=== PATIENT | male | born 1985 | race Hispanic/Latino ===

== ENCOUNTER 2017-03-01 10:07 | Emergency (ER) | payer BC, OTHER ==
[2017-03-01 10:29] VITALS: BMI 25.6
[2017-03-01 10:43] VITALS: RESP 20
[2017-03-01] MEDS ORDERED: Sodium Chloride 0.9% 1,000 ML IV STA (11:20)
[2017-03-01] MEDS ORDERED: Iohexol 240 (50 ml) PO STA (11:34)
[2017-03-01] MEDS ORDERED: Iohexol 240 (50 ml) ONE (11:45)
[2017-03-01 11:54] LABS: BASO % 0.3 % (0.0-2.0); EOS # 0.2 K/uL (0.0-0.7); EOS % 3.5 % (0.0-4.0); HEMATOCRIT 42.2 % (35.0-51.0); LYMPH # 1.4 K/uL (1.0-4.3); LYMPH % 26.1 % (20.0-40.0); MEAN CORPUSCULAR HEMOGLOBIN 28.8 pg (27.0-31.0); MEAN CORPUSCULAR HGB CONC 33.4 g/dL (33.0-37.0); MEAN PLATELET VOLUME 8.8 fl (7.2-11.7); MONO # 0.6 K/uL (0.0-0.8); MONO % 10.6 % (0.0-10.0); NEUT # 3.1 K/uL (1.8-7.0); NEUT % 59.5 % (50.0-75.0); NRBC % 0.1 % (0.0-0.0); RED CELL DISTRIBUTION WIDTH 13.2 % (11.5-14.5); WHITE BLOOD COUNT 5.2 K/uL (4.8-10.8)
--- NOTE | 2017-03-01 11:57 | ED PDOC ---
HPI: Abdomen Chief Complaint (Provider): Epigastric abdominal pain History Per: Patient Onset/Duration Of Symptoms: Hrs Outside of [place] travel?: No Associated Symptoms: denies: Fever, Chills, Nausea, Vomiting, Loss Of Appetite, Constipation, Urinary Symptoms Exacerbating Factors: None <Carole Davis - Last Filed: 03/01/17 14:53> <Boubacar Perez III - Last Filed: 03/01/17 15:01> Time Seen by Provider: 03/01/17 10:49 Chief Complaint (Nursing): Abdominal Pain Additional Complaint(s): Pt states that 2 weeks ago he woke up in the middle of the night with epigastric pain and felt a tender abnormality. Pt states during the day it went away but last night it happened again. Pt denies N/B/D. Pt states he did not take anything for pain. (Carole Daivs) Past Medical History Reviewed: Historical Data, Nursing Documentation, Vital Signs - Medical History PMH: No Chronic Diseases - Surgical History Surgical History: No Surg Hx - Family History Family History: States: Unknown Family Hx - Living Arrangements Living Arrangements: With Family - Social History Current smoker - smoking cessation education provided: No Alcohol: Occasional (Pt reports drinking last night) Drugs: Denies <Carole Davis - Last Filed: 03/01/17 14:53> <Boubacar Perez III - Last Filed: 03/01/17 15:01> Vital Signs: Last Vital Signs Temp 98.8 F 03/01/17 10:41 Pulse 85 03/01/17 10:41 Resp 20 03/01/17 10:41 BP 145/77 03/01/17 10:41 Pulse Ox 100 03/01/17 14:53 - Home Medications Home Medications: Ambulatory Orders Medication Instructions Recorded traMADol [Ultram] 50 mg PO TID PRN #12 tab 03/01/17 - Allergies Allergies/Adverse Reactions: Allergies Allergy/AdvReac Type Severity Reaction Status Date / Time No Known Allergies Allergy Verified 03/01/17 10:41 Review of Systems ROS Statement: Except As Marked, All Systems Reviewed And Found Negative Gastrointestinal: Positive for: Abdominal Pain, Other. Negative for: Nausea, Vomiting <Carole Davis - Last Filed: 03/01/17 14:53> Physical Exam - Reviewed Nursing Documentation Reviewed: Yes Vital Signs Reviewed: Yes - Physical Exam Appears: Positive for: Well, Non-toxic, No Acute Distress Head Exam: Positive for: ATRAUMATIC, NORMAL INSPECTION, NORMOCEPHALIC Skin: Positive for: Normal Color, Warm, DRY Eye Exam: Positive for: Normal appearance ENT: Positive for: Normal ENT Inspection Neck: Positive for: Normal, Painless ROM Cardiovascular/Chest: Positive for: Regular Rate, Rhythm Respiratory: Positive for: Normal Breath Sounds. Negative for: Accessory Muscle Use, Respiratory Distress Gastrointestinal/Abdominal: Positive for: Bowel Sounds, Soft, Tenderness ( Palpable tender mass, epigastric area ). Negative for: Normal Exam Back: Positive for: Normal Inspection Extremity: Positive for: Normal ROM Neurologic/Psych: Positive for: Alert, Oriented <Carole Davis - Last Filed: 03/01/17 14:53> - Laboratory Results Result Diagrams: 03/01/17 11:49 03/01/17 11:49 - ECG O2 Sat by Pulse Oximetry: 100 Pulse Ox Interpretation: Normal <Carole Davis - Last Filed: 03/01/17 14:53> - Laboratory Results Result Diagrams: 03/01/17 11:49 03/01/17 11:49 <Boubacar Perez III - Last Filed: 03/01/17 15:01> Medical Decision Making <Carole Davis - Last Filed: 03/01/17 14:53> <Boubacar Perez III - Last Filed: 03/01/17 15:01> Medical Decision Making: Endorsed to Dr. Perez pending labs and CT scan. (Carole Davis) labs reviewed, clinically unremarkable CT report: Accession No. : [id number] Patient Name / ID : REBECCA GONZALES / [id number] Exam Date : 03/01/2017 14:18:20 ( Addendum_Approved ) Study Comment : Sex / Age : M / [id number] Creator : Betsey Nichole MD Dictator : Betsey Nichole MD Calender Wind Up Tender : Examining Chair Assembler : Betsey Nichole MD Approver2 : Report Date : 03/01/2017 14:47:51 My Comment : ADDENDUM: This addendum is in regards to additional findings in the abdominal wall. There is a supraumbilical midline ventral hernia containing fat and minimal soft tissue. No evidence of herniation of bowel or level. No CT evidence for incarceration. [ Addendum Report Added by Betsey Nichole MD at 03/01/2017 14:51:49 ] PROCEDURE: CT Abdomen and Pelvis with contrast HISTORY: Epigastric pain, tender palpable mass COMPARISON: None. TECHNIQUE: Contrast dose: 95 mL Omnipaque 300 Radiation dose: Total exam DLP = 990.1 a mGy-cm. This CT exam was performed using one or more of the following dose reduction techniques: Automated exposure control, adjustment of the mA and/or kV according to patient size, and/or use of iterative reconstruction technique. FINDINGS: LOWER THORAX: There is bibasilar subsegmental atelectasis. LIVER: The liver is normal in size and there is homogeneous enhancement. There is mild diffuse low-attenuation in the liver. No gross lesion or ductal dilatation. GALLBLADDER AND BILE DUCTS: There are no calcified gallstones. PANCREAS: The pancreas is normal in appearance. No gross lesion or ductal dilatation. SPLEEN: There is borderline splenomegaly without focal lesion. ADRENALS: Both adrenal glands are normal in size without discrete nodule. KIDNEYS AND URETERS: Both kidneys are normal in size and there is homogeneous enhancement without focal mass or hydronephrosis. VASCULATURE: No evidence of aortic aneurysm. The abdominal vasculature is normal in appearance. BOWEL: The small bowel loops are normal in caliber. The colon is unremarkable. APPENDIX: Normal appendix. PERITONEUM: No free fluid. No free air. LYMPH NODES: No enlarged lymph nodes. BLADDER: Unremarkable. REPRODUCTIVE: Normal in appearance. The prostate gland is normal in size. BONES: No acute fracture. Within normal limits for the patient's age with OTHER FINDINGS: None. IMPRESSION: 1. No evidence of mass in the stomach or pancreas. No acute abdominal abnormality. 2. Hepatic steatosis and mild splenomegaly. Discussed findings w patient. Will need elective semiurgent repair. Pain control. Avoid exertion, fitness training until sees surgeon. Returning to [place] sunday. Return to ER for any worse or new symptoms. Pt comfortable with nonacute abdomen on discharge. I took part in all care, examined patient and agree w PA findings. (Boubacar Perez III) Disposition - Patient ED Disposition Is Patient to be Admitted: Transfer of Care - Disposition Disposition: Transfer of Care Disposition Time: 12:53 <Carole Davis - Last Filed: 03/01/17 14:53> - Patient ED Disposition Is Patient to be Admitted: No Counseled Patient/Family Regarding: Studies Performed, Diagnosis, Need For Followup, Rx Given - Disposition Disposition: Routine/Home Disposition Time: 14:58 <Boubacar Perez III - Last Filed: 03/01/17 15:01> - Clinical Impression Clinical Impression: Abdominal pain, Ventral hernia - Disposition Referrals: Jh Griffin MD [Staff Provider] - Condition: STABLE Additional Instructions: See surgeon within next week for further testing and possible surgery to correct ventral hernia. Return to ER for any new or worse symptoms, pain, vomiting or fever. Avoid heavy exertion or straining to prevent further worsening of hernia defect. Prescriptions: traMADol [Ultram] 50 mg PO TID PRN #12 tab PRN Reason: Pain, Moderate (4-7) Instructions: Ventral Hernia (ED)
[2017-03-01 12:08] LABS: CHLORIDE 103 mmol/L (98-107); POTASSIUM 4.6 MMOL/L (3.6-5.0); SODIUM 142 mmol/l (132-148)
[2017-03-01 12:10] LABS: ALB/GLOB RATIO 1.4 (1.0-2.1); ALKALINE PHOSPHATASE 65 U/L (38-126); AST/SGOT 36 U/L (17-59); BILIRUBIN,TOTAL 0.7 mg/dl (0.2-1.3); CARBON DIOXIDE 28 mmol/L (22-30); GFR AFRICAN-AMERICAN > 60; TOTAL PROTEIN 8.1 G/DL (6.3-8.2)
[2017-03-01 12:11] LABS: ALT/SGPT 34 U/L (21-72); BLOOD UREA NITROGEN 16 mg/dl (9-20); CALCIUM 9.4 mg/dL (8.4-10.2); GLUCOSE,RANDOM 88 mg/dL (75-110); LIPASE 41 U/L (23-300)
[2017-03-01] MEDS ORDERED: Sodium Chloride 0.9% 50 ML IV ONE (13:57)
[2017-03-01] MEDS ORDERED: Iohexol 300 100 ML IJ ONE (13:57)
--- NOTE | 2017-03-01 14:49 | CT ---
PROCEDURE: CT Abdomen and Pelvis with contrast HISTORY: Epigastric pain, tender palpable mass COMPARISON: None. TECHNIQUE: Contrast dose: 95 mL Omnipaque 300 Radiation dose: Total exam DLP = 990.1 a mGy-cm. This CT exam was performed using one or more of the following dose reduction techniques: Automated exposure control, adjustment of the mA and/or kV according to patient size, and/or use of iterative reconstruction technique. FINDINGS: LOWER THORAX: There is bibasilar subsegmental atelectasis. LIVER: The liver is normal in size and there is homogeneous enhancement. There is mild diffuse low-attenuation in the liver. No gross lesion or ductal dilatation. GALLBLADDER AND BILE DUCTS: There are no calcified gallstones. PANCREAS: The pancreas is normal in appearance. No gross lesion or ductal dilatation. SPLEEN: There is borderline splenomegaly without focal lesion. ADRENALS: Both adrenal glands are normal in size without discrete nodule. KIDNEYS AND URETERS: Both kidneys are normal in size and there is homogeneous enhancement without focal mass or hydronephrosis. VASCULATURE: No evidence of aortic aneurysm. The abdominal vasculature is normal in appearance. BOWEL: The small bowel loops are normal in caliber. The colon is unremarkable. APPENDIX: Normal appendix. PERITONEUM: No free fluid. No free air. LYMPH NODES: No enlarged lymph nodes. BLADDER: Unremarkable. REPRODUCTIVE: Normal in appearance. The prostate gland is normal in size. BONES: No acute fracture. Within normal limits for the patient's age with OTHER FINDINGS: None. IMPRESSION: 1. No evidence of mass in the stomach or pancreas. No acute abdominal abnormality. 2. Hepatic steatosis and mild splenomegaly.
[2017-03-01 15:31] VITALS: BP 130/70; PULSE 72; TEMP 98; O2SAT 98
== END 2017-03-01 15:32 | disposition home or self-care (01) ==
LOC: H.ER 10:07
DX: K43.9 Ventral hernia without obstruction or gangrene (principal); R10.13 Epigastric pain; R16.1 Splenomegaly, not elsewhere classified